=== PATIENT | female | born 1945 ===

== ENCOUNTER 2016-09-21 19:28 | Emergency (ER) | payer MEDICARE, MEDICAID ==
[2016-09-21 19:28] VITALS: BMI 34.3
[2016-09-21 20:11] VITALS: BP 165/79; PULSE 97; RESP 16; TEMP 97.9; O2SAT 99
--- NOTE | 2016-09-21 21:50 | ED PDOC ---
Lower Extremity Pain/Injury Time Seen by Provider: 09/21/16 20:15 Chief Complaint (Nursing): Lower Extremity Problem/Injury Chief Complaint (Provider): Lower Extremity Injury History Per: Patient History/Exam Limitations: no limitations Onset/Duration Of Symptoms: Hrs (earlier today) Current Symptoms Are (Timing): Still Present Additional Complaint(s): 71 year old female presents to ED with complaints of left ankle pain since earlier today. Patient states that she was walking when she felt the sudden onset of pain. (-) pain radiation, numbness, tingling, or fever. PCP: Sudhakar Powers Past Medical History Reviewed: Historical Data, Nursing Documentation, Vital Signs Vital Signs: Last Vital Signs Temp 97.9 F 09/21/16 20:09 Pulse 97 H 09/21/16 20:09 Resp 16 09/21/16 20:09 BP 165/79 H 09/21/16 20:09 Pulse Ox 99 09/21/16 20:09 - Medical History PMH: Anxiety, Arthritis, Asthma, COPD, Depression, Diabetes, Diverticulitis, GERD, HTN, Hypercholesterolemia, Chronic Kidney Disease - Surgical History Surgical History: Cholecystectomy, (x1) - Family History Family History: States: Unknown Family Hx - Home Medications Home Medications: Ambulatory Orders Medication Instructions Recorded Albuterol 0.5% [Albuterol 0.5% 1 puff INH Q6 PRN 03/03/14 Inhal Lena (5 mg/ ml) 20 ml] Alprazolam [Xanax] 1 tab PO DAILY PRN 03/03/14 Bimatoprost [Lumigan 2.5 ml] 1 drop EACHEYE DAILY 03/03/14 Bisoprolol [Bisoprolol] 1 tab PO DAILY 03/03/14 Dexlansoprazole [Dexilant] 1 tab PO DAILY 03/03/14 Dorzolamide 2% [Trusopt] 1 drop EACHEYE BID 03/03/14 Budesonide/Formoterol Fumarate 1 aer IH BID 05/25/14 [Symbicort] Valsartan [Diovan] 40 mg PO DAILY 05/25/14 Albuterol 0.5% [Albuterol 0.5% 3 ml IH Q6H PRN #30 neb 01/11/15 Inhal Lena (2.5 mg/0.5 ml) UD] Albuterol HFA [Ventolin HFA 90 2 puff IH [id number] PRN #1 bottle 01/11/15 mcg/actuation (8 g)] Prednisone 50 mg PO DAILY #4 tab 01/11/15 Tramadol HCl [Ultram] 50 mg PO BID PRN #10 tablet 09/21/16 - Allergies Allergies/Adverse Reactions: Allergies Allergy/AdvReac Type Severity Reaction Status Date / Time clindamycin Allergy SWELLING Verified 09/21/16 20:33 ibuprofen [From Motrin] Allergy SWELLING Verified 09/21/16 20:33 iodine Allergy RASH Verified 09/21/16 20:33 Penicillins Allergy SWELLING Verified 09/21/16 20:33 Review of Systems ROS Statement: Except As Marked, All Systems Reviewed And Found Negative Constitutional: Negative for: Fever Musculoskeletal: Positive for: Leg Pain (Left ankle pain) Physical Exam - Reviewed Nursing Documentation Reviewed: Yes Vital Signs Reviewed: Yes - Physical Exam Appears: Positive for: Non-toxic, No Acute Distress Skin: Positive for: Normal Color, Warm, Dry Pulses-Dorsalis Pedis (L): 2+ Pulses-Dorsalis Pedis (R): 2+ Extremity: Positive for: Tenderness (Minimal tenderness to left medial malleolus , no foot tenderness), Capillary Refill (<2 seconds). Negative for: Calf Tenderness, Deformity, Other (No warmth or erythema to the area) Neurologic/Psych: Positive for: Alert, Oriented. Negative for: Motor/Sensory Deficits - ECG O2 Sat by Pulse Oximetry: 99 (RA) Pulse Ox Interpretation: Normal - Radiology X-Ray: Interpreted by Me (Ankle x-ray) X-Ray Interpretation: Other (mild DJD; no fx) Medical Decision Making Medical Decision Makin Initial impression: ankle pain Initial plan: * XR ANKLE LEFT Scribe Attestation: Documented by Christal Ruiz acting as a scribe for Rico Todd PA-C. MD Scribe Attestation: All medical record entries made by the Scribe were at my direction and personally dictated by me. I have reviewed the chart and agree that the record accurately reflects my personal performance of the history, physical exam, medical decision making, and the department course for this patient. I have also personally directed, reviewed, and agree with the discharge instructions and disposition. Disposition - Clinical Impression Clinical Impression: Ankle pain - Patient ED Disposition Is Patient to be Admitted: No - Disposition Referrals: [facility] [Outside] Bebo Miranda DPM [Staff Provider] - Disposition Time: 21:20 Condition: STABLE Prescriptions: Tramadol HCl [Ultram] 50 mg PO BID PRN #10 tablet PRN Reason: Other Instructions: Arthralgia (ED) Print Language: CROATIAN
--- NOTE | 2016-09-22 10:27 | RAD ---
PROCEDURE: Left Ankle Radiographs. HISTORY: pain COMPARISON: None FINDINGS: BONES: No fracture is seen. No lytic process is identified. Talar dome is normal in outline. There are mild degenerative changes seen in the medial and lateral ankle region. Posterior and plantar calcaneal spurs are noted. There are additional degenerative changes seen in the tarsal bone region. No focal osteochondral defect in the talar dome. JOINTS: No ankle mortise widening. Subtalar joint is unremarkable. SOFT TISSUES: Moderate soft tissue swelling. OTHER FINDINGS: None. IMPRESSION: Nonspecific soft tissue swelling. No acute fracture. Degenerative changes.
== END 2016-09-21 21:40 | disposition home or self-care (01) ==
LOC: H.ER 19:28
DX: M25.572 Pain in left ankle and joints of left foot (principal); E11.22 Type 2 diabetes mellitus with diabetic chronic kidney disease; E78.00 Pure hypercholesterolemia, unspecified; I12.9 Hypertensive chronic kidney disease with stage 1 through stage 4 chronic kidney disease, or unspecified chronic kidney disease

== ENCOUNTER 2017-07-25 11:58 | Emergency (ER) | payer MEDICARE, MEDICAID ==
[2017-07-25 11:58] VITALS: BMI 34.3
[2017-07-25 12:41] VITALS: RESP 18; O2SAT 97
[2017-07-25] MEDS ORDERED: Albuterol-Ipratrop 3 mg / 0.5 (3 ml) UD INH STA (13:28)
--- NOTE | 2017-07-25 13:28 | ED PDOC ---
HPI: SOB/CHF/COPD Time Seen by Provider: 07/25/17 12:57 Chief Complaint (Nursing): Shortness Of Breath Chief Complaint (Provider): asthma, cough History Per: Patient Additional Complaint(s): 22-year-old female with history of asthma presents to emergency department with asthma exacerbation for 2 days associated with dry cough. Patient denies any chest pain. She has been using Ventolin inhaler which has provided minimal relief of symptoms. She denies any recent travel. She is unaware of any fever or chills. Past Medical History Reviewed: Historical Data, Nursing Documentation, Vital Signs Vital Signs: Last Vital Signs Temp 98.0 F 07/25/17 12:39 Pulse 93 H 07/25/17 12:39 Resp 18 07/25/17 14:08 BP 162/85 H 07/25/17 12:39 Pulse Ox 97 07/25/17 16:17 - Medical History PMH: Anxiety, Arthritis, Asthma, COPD, Depression, Diabetes, Diverticulitis, GERD, HTN, Hypercholesterolemia - Surgical History Surgical History: Cholecystectomy, (x1) - Family History Family History: States: No Known Family Hx - Social History Current smoker - smoking cessation education provided: No Alcohol: None Drugs: Denies - Home Medications Home Medications: Ambulatory Orders Medication Instructions Recorded Albuterol 0.5% [Albuterol 0.5% 1 puff INH Q6 PRN 03/03/14 Inhal Lena (5 mg/ ml) 20 ml] Alprazolam [Xanax] 1 tab PO DAILY PRN 03/03/14 Bimatoprost [Lumigan 2.5 ml] 1 drop EACHEYE DAILY 03/03/14 Bisoprolol [Bisoprolol] 1 tab PO DAILY 03/03/14 Dexlansoprazole [Dexilant] 1 tab PO DAILY 03/03/14 Dorzolamide 2% [Trusopt] 1 drop EACHEYE BID 03/03/14 Budesonide/Formoterol Fumarate 1 aer IH BID 05/25/14 [Symbicort] Valsartan [Diovan] 40 mg PO DAILY 05/25/14 Albuterol 0.5% [Albuterol 0.5% 3 ml IH Q6H PRN #30 neb 01/11/15 Inhal Lena (2.5 mg/0.5 ml) UD] Albuterol HFA [Ventolin HFA 90 2 puff IH [id number] PRN #1 bottle 01/11/15 mcg/actuation (8 g)] Prednisone 50 mg PO DAILY #4 tab 01/11/15 Tramadol HCl [Ultram] 50 mg PO BID PRN #10 tablet 09/21/16 Albuterol HFA [Ventolin HFA 90 1 puff IH ASDIR #1 unit 07/25/17 mcg/actuation (8 g)] Azithromycin [Zithromax] 250 mg PO DAILY #6 tab 07/25/17 Benzonatate 200 mg PO TID PRN #20 capsule 07/25/17 predniSONE [Prednisone] 10 mg PO BID #10 tab 07/25/17 - Allergies Allergies/Adverse Reactions: Allergies Allergy/AdvReac Type Severity Reaction Status Date / Time clarithromycin [From Biaxin] Allergy VOMITING Verified 07/25/17 12:39 clindamycin Allergy SWELLING Verified 07/25/17 12:39 ibuprofen [From Motrin] Allergy SWELLING Verified 07/25/17 12:39 iodine Allergy RASH Verified 07/25/17 12:39 Penicillins Allergy SWELLING Verified 07/25/17 12:39 Curb-65 Severity Score - CURB-65 Severity Score Confusion: No Bun >19mg/dl (>7mmol/L): No Respiratory Rate greater than/equal to 30: No Systolic BP <90 or Diastolic BP less than/equal 60mmHg: No Age >64: Yes Curb-65 Score: 1 Percentage 30-day mortality: 2.7% Wells Criteria for PE - Wells Criteria for Pulmonary Embolism Clinical Signs and Symptoms of DVT: No P.E is #1 Diagnosis, or Equally Likely: No Heart Rate >100: No Immobilization at least 3 days;Surgery previous 4 weeks: No Previous, objectively diagnosed PE or DVT: No Hemoptysis: No Malignancy w/treatment within 6 months, or palliative: No Total Score: 0 Review of Systems ROS Statement: Except As Marked, All Systems Reviewed And Found Negative Constitutional: Negative for: Fever, Chills Cardiovascular: Negative for: Chest Pain Respiratory: Positive for: Cough, Shortness of Breath. Negative for: Wheezing Gastrointestinal: Negative for: Nausea, Vomiting Neurological: Negative for: Headache, Dizziness Physical Exam - Reviewed Nursing Documentation Reviewed: Yes Vital Signs Reviewed: Yes - Physical Exam Appears: Positive for: Well, Non-toxic, No Acute Distress Skin: Negative for: Rash Eye Exam: Positive for: Normal appearance ENT: Positive for: Normal ENT Inspection Neck: Positive for: Normal Cardiovascular/Chest: Positive for: Regular Rate, Rhythm Respiratory: Positive for: Decreased Breath Sounds. Negative for: Accessory Muscle Use, Wheezing, Respiratory Distress Extremity: Negative for: Pedal Edema Neurologic/Psych: Positive for: Alert, Oriented - Laboratory Results Result Diagrams: 07/25/17 13:36 07/25/17 13:36 - ECG Interpretation Of ECG: NSR 94 bpm, no acute finding, reviewed by PA and ED attending. O2 Sat by Pulse Oximetry: 97 Pulse Ox Interpretation: Normal - Other Rad cxr X-Ray: Interpreted by Me, Viewed By Me X-Ray Interpretation: no acute finding Nebulizer Treatments/Peak Flow - Duonebs Number of Bronchodilator Doses given?: 1 (duoneb) - Pre/Post Peak Flow Pre Treatment Peak Flow: 200 Post treatment Peak Flow: 250 - Steroid Treatment Steroid: Oral (prednisone 20 mg PO tab) - Clinical Response Clinical Response: Improved Medical Decision Making Medical Decision Makin72 year old with asthma exacerbation and cough Plan: CBC CMP EKG CXR Trop BNP Duoneb x 1 Prednisone 20 mg PO PO tylenol Flu swab Patient is aware of all diagnostic testing results, all questions answered. Patient feels better after meds given. Prescriptions provided for Tessalon Perles, Zithromax, prednisone and Ventolin inhaler. Advised Tylenol as needed for pain, fluids, rest and follow-up with clinic or primary doctor in 2-3 days. Patient aware she can return to ED any time if acutely worse. Disposition - Clinical Impression Clinical Impression: Asthma exacerbation, mild, Bronchitis - Patient ED Disposition Is Patient to be Admitted: No Counseled Patient/Family Regarding: Studies Performed, Diagnosis, Need For Followup, Rx Given - Disposition Referrals: [facility] [Outside] Disposition: Routine/Home Disposition Time: 16:35 Condition: STABLE Additional Instructions: Take prescription medications as directed. Tylenol for pain as needed. Follow up with clinic or primary doctor in 2-3 days. Prescriptions: Albuterol HFA [Ventolin HFA 90 mcg/actuation (8 g)] 1 puff IH ASDIR #1 unit Azithromycin [Zithromax] 250 mg PO DAILY #6 tab Benzonatate 200 mg PO TID PRN #20 capsule PRN Reason: Cough predniSONE [Prednisone] 10 mg PO BID #10 tab Instructions: Asthma (ED), Acute Bronchitis (ED) Forms: [employer] (Moroccan) Results - Lab Results Lab Results: 07/25/17 07/25/17 07/25/17 14:06 13:36 13:36 WBC 8.0 RBC 4.63 Hgb 12.6 Hct 37.8 MCV 81.8 MCH 27.2 MCHC 33.3 RDW 14.8 H Plt Count 221 MPV 9.5 Neut % (Auto) 62.2 Lymph % (Auto) 25.7 [place] % (Auto) 8.2 Eos % (Auto) 3.4 Baso % (Auto) 0.5 Neut # 5.0 Lymph # 2.1 [place] # 0.7 Eos # 0.3 Baso # 0.0 Sodium 142 Potassium 3.9 Chloride 104 Carbon Dioxide 28 Anion Gap 14 BUN 14 Creatinine 1.0 Est GFR ( Amer) > 60 Est GFR (Non-Af Amer) 55 Random Glucose 125 H Calcium 9.7 Total Bilirubin 0.4 AST 22 ALT 41 Alkaline Phosphatase 72 Troponin I < 0.0120 NT-Pro-B Natriuret Pep 109 Total Protein 8.3 H Albumin 4.4 Globulin 3.9 Albumin/Globulin Ratio 1.1 Influenza Typ A,B (EIA) Negative for flu a/b
[2017-07-25] MEDS ORDERED: Albuterol-Ipratrop 3 mg / 0.5 (3 ml) UD ONE (13:49)
[2017-07-25 14:03] LABS: ALB/GLOB RATIO 1.1 (1.0-2.1); ALBUMIN 4.4 g/dL (3.5-5.0); ALT/SGPT 41 U/L (9-52); AST/SGOT 22 U/L (14-36); BLOOD UREA NITROGEN 14 mg/dl (7-17); CALCIUM 9.7 mg/dL (8.4-10.2); GFR AFRICAN-AMERICAN > 60; GFR NON-AFRICAN AMERICAN 55
[2017-07-25 14:12] LABS: BASO % 0.5 % (0.0-2.0); EOS # 0.3 K/uL (0.0-0.7); EOS % 3.4 % (0.0-4.0); HEMOGLOBIN 12.6 g/dL (12.0-16.0); LYMPH # 2.1 K/uL (1.0-4.3); LYMPH % 25.7 % (20.0-40.0); MEAN CELL VOLUME 81.8 fl (81.0-99.0); MEAN CORPUSCULAR HEMOGLOBIN 27.2 pg (27.0-31.0); MEAN CORPUSCULAR HGB CONC 33.3 g/dL (33.0-37.0); MEAN PLATELET VOLUME 9.5 fl (7.2-11.7); MONO # 0.7 K/uL (0.0-0.8); MONO % 8.2 % (0.0-10.0); NEUT % 62.2 % (50.0-75.0); NRBC % 0.1 % (0.0-0.0); RBC 4.63 Mil/uL (3.80-5.20); RED CELL DISTRIBUTION WIDTH 14.8 % (11.5-14.5)
[2017-07-25 14:14] LABS: B-TYPE NATRIURETIC PEPTIDE 109 pg/ml (0-900)
--- NOTE | 2017-07-25 14:37 | RAD ---
HISTORY: cough, SOB COMPARISON: 01/17/2017 FINDINGS: LUNGS: No active pulmonary disease. PLEURA: No significant pleural effusion identified, no pneumothorax apparent. CARDIOVASCULAR: Normal. OSSEOUS STRUCTURES: Apparent thoracic dextroscoliosis likely artifactual due to oblique positioning. VISUALIZED UPPER ABDOMEN: Normal. OTHER FINDINGS: None. IMPRESSION: No active disease.
[2017-07-25 16:53] VITALS: BP 138/78; PULSE 78; TEMP 98.8
--- NOTE | 2017-07-26 18:12 | CARD ---
APPROVED REPORT EKG Measurement Heart [id number] <Conclusion> Normal sinus rhythm Minimal voltage criteria for LVH, may be normal variant Nonspecific ST and T wave abnormality Abnormal ECG
== END 2017-07-25 16:53 | disposition home or self-care (01) ==
LOC: H.ER 11:58
DX: J45.901 Unspecified asthma with (acute) exacerbation (principal); E11.9 Type 2 diabetes mellitus without complications; E78.00 Pure hypercholesterolemia, unspecified; F32.9 Major depressive disorder, single episode, unspecified; F41.9 Anxiety disorder, unspecified; I10 Essential (primary) hypertension; K21.9 Gastro-esophageal reflux disease without esophagitis; Z88.0 Allergy status to penicillin; Z88.6 Allergy status to analgesic agent

== ENCOUNTER 2018-01-15 11:32 | Emergency (ER) | payer MEDICARE, MEDICAID ==
[2018-01-15 11:40] VITALS: BMI 35.6
--- NOTE | 2018-01-15 12:22 | ED PDOC ---
HPI: Back Time Seen by Provider: 01/15/18 11:49 Chief Complaint (Nursing): Back Pain History Per: Patient History/Exam Limitations: no limitations Additional Complaint(s): 72 yo F w/ PMH of HTN, asthma, DM, PUD, h/o R renal cancer, s/p R nephrectomy - 2007, cholecystectomy, complains of 3 day h/o intermitttent throbbing lower abdominal pain associated with nausea with no exacerbating or alleviating factors. Patient adds that she has had 3 month h/o intermittent atraumatic R flank pain, which she was already evaluated by her pmd for and was Rx muscle relaxer with no improvement. Otherwise: (+) dysuria, (-) vomiting, (-) diarrhea , (-) fever, (-) melena, (-) hematochezia, (-) chest pain, (-) SOB. 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 Past Medical History Vital Signs: Last Vital Signs Temp 98.1 F 01/15/18 11:41 Pulse 96 H 01/15/18 11:41 Resp 17 01/15/18 11:41 BP 171/84 H 01/15/18 11:41 Pulse Ox 97 01/15/18 11:41 - Medical History PMH: Anxiety, Arthritis, Asthma, COPD, Depression, Diabetes, Diverticulitis, GERD, HTN, Hypercholesterolemia, Chronic Kidney Disease - Surgical History Surgical History: Cholecystectomy, (x1) - Family History Family History: States: Unknown Family Hx - Home Medications Home Medications: Ambulatory Orders Medication Instructions Recorded Albuterol 0.5% [Albuterol 0.5% 1 puff INH Q6 PRN 03/03/14 Inhal Lena (5 mg/ ml) 20 ml] Alprazolam [Xanax] 1 tab PO DAILY PRN 03/03/14 Bimatoprost [Lumigan 2.5 ml] 1 drop EACHEYE DAILY 03/03/14 Bisoprolol [Bisoprolol] 1 tab PO DAILY 03/03/14 Dexlansoprazole [Dexilant] 1 tab PO DAILY 03/03/14 Dorzolamide 2% [Trusopt] 1 drop EACHEYE BID 03/03/14 Budesonide/Formoterol Fumarate 1 aer IH BID 05/25/14 [Symbicort] Valsartan [Diovan] 40 mg PO DAILY 05/25/14 Albuterol 0.5% [Albuterol 0.5% 3 ml IH Q6H PRN #30 neb 01/11/15 Inhal Lena (2.5 mg/0.5 ml) UD] Albuterol HFA [Ventolin HFA 90 2 puff IH [id number] PRN #1 bottle 01/11/15 mcg/actuation (8 g)] Prednisone 50 mg PO DAILY #4 tab 01/11/15 Tramadol HCl [Ultram] 50 mg PO BID PRN #10 tablet 09/21/16 Albuterol HFA [Ventolin HFA 90 1 puff IH ASDIR #1 unit 07/25/17 mcg/actuation (8 g)] Azithromycin [Zithromax] 250 mg PO DAILY #6 tab 07/25/17 Benzonatate 200 mg PO TID PRN #20 capsule 07/25/17 predniSONE [Prednisone] 10 mg PO BID #10 tab 07/25/17 Sulfamethoxazole/Trimethoprim 1 tab PO BID #14 tab 01/15/18 [Bactrim DS 800 mg-160 mg] - Allergies Allergies/Adverse Reactions: Allergies Allergy/AdvReac Type Severity Reaction Status Date / Time clarithromycin [From Biaxin] Allergy VOMITING Verified 07/25/17 12:39 clindamycin Allergy SWELLING Verified 07/25/17 12:39 ibuprofen [From Motrin] Allergy SWELLING Verified 07/25/17 12:39 iodine Allergy RASH Verified 07/25/17 12:39 Penicillins Allergy SWELLING Verified 07/25/17 12:39 Review of Systems Constitutional: Negative for: Fever, Malaise Cardiovascular: Negative for: Chest Pain, Palpitations Respiratory: Negative for: Cough, Shortness of Breath Gastrointestinal: Positive for: Nausea, Abdominal Pain. Negative for: Vomiting , Diarrhea Genitourinary Female: Positive for: Dysuria. Negative for: Frequency, Hematuria Musculoskeletal: Negative for: Neck Pain, Back Pain Skin: Negative for: Rash, Lesions Physical Exam - Physical Exam Appears: Positive for: Well, Non-toxic, No Acute Distress (ambulating in the ER , in no painful distress) Head Exam: Positive for: ATRAUMATIC, NORMAL INSPECTION, NORMOCEPHALIC Skin: Positive for: Normal Color, Warm, Dry Eye Exam: Positive for: EOMI, Normal appearance, PERRL ENT: Positive for: Normal ENT Inspection, Other (mucus membranes moist) Neck: Positive for: Normal, Painless ROM, Supple Cardiovascular/Chest: Positive for: Regular Rate, Rhythm. Negative for: Murmur Respiratory: Positive for: Normal Breath Sounds. Negative for: Rales, Rhonchi, Wheezing Gastrointestinal/Abdominal: Positive for: Normal Exam, Soft. Negative for: Tenderness, Organomegaly, Mass, Guarding, Rebound Back: Positive for: Normal Inspection. Negative for: L CVA Tenderness, R CVA Tenderness, Vertebral Tenderness Extremity: Positive for: Normal ROM. 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 Negative for : Motor/Sensory Deficits - Laboratory Results Result Diagrams: 01/15/18 12:40 01/15/18 13:00 - ECG O2 Sat by Pulse Oximetry: 97 Medical Decision Making Medical Decision Making: Plan : - IV - Labs - Udip - CT A/P w/ PO & IV contrast - pepcid IV / zofran IV Udip (+) trace leuks, (+) proteins. UA and culture sent to lab. Labs reviewed : wnl. CT A/P : FINDINGS: LOWER THORAX: Unremarkable. LIVER: Unremarkable. No gross lesion or ductal dilatation. GALLBLADDER AND BILE DUCTS: Unremarkable. PANCREAS: Unremarkable. No gross lesion or ductal dilatation. SPLEEN: Unremarkable. ADRENALS: The minimal nodular prominence to the left adrenal limbs is stable finding. KIDNEYS AND URETERS: The right kidney is not visualized consistent with its prior surgical removal surgical clips here noted. This no soft tissue findings to suggest disease recurrence here. The large exophytic left lower renal pole cyst is much smaller in size on the current study previously this measured up to 13 cm now this is approximately 7 cm. No hydronephrosis. No gross suspicious mass on this noncontrast enhanced study. No left renal or ureteral calculi. VASCULATURE: Unremarkable. No aortic aneurysm. BOWEL: Unremarkable. No obstruction. No gross mural thickening. No gross diverticulitis suggested APPENDIX: Normal appendix. PERITONEUM: Unremarkable. No free fluid. No free air. LYMPH NODES: Unremarkable. No enlarged lymph nodes. BLADDER: Unremarkable. REPRODUCTIVE: There are probably interval minimal benign-appearing follicular cystic changes in this left ovary in this 72-year-old female. No suspicious interval pathology noted BONES: No acute fracture. Facet hypertrophic changes and diffuse lumbar spondylosis noted findings are critically noted at the L4-5. These bilateral facet changes slightly encroach on each posterior lateral recess. OTHER FINDINGS: A very small umbilical fat only containing hernia noted no bowel containing hernias noted IMPRESSION: Status post right nephrectomy without disease recurrence suggested in the nephrectomy bed. The prior left lower renal pole exophytic renal cyst smaller on the current study prior study no interval renal ureteral or bladder calculi seen. No hydronephrosis Following the left ureter to the bladder is somewhat problematic. Some of the findings seen near its course may relate to tiny ovarian follicular cystic changes in this postmenopausal female. No proximal left ureteral dilatation. No distal ureteral obstructing source appreciated. Osseous hypertrophic changes as above. At L4-5 the facets mild moderately iencroach on the posterior lateral recesses. No high-grade central stenosis noted. No fractures appreciated. On re-evaluation, patient denies any abdominal pain or flank pain at this time. On exam, patient remains AAOx3, in no acute distress. Abdomen soft, non-tender, no CVA tenderness. BP 156/70 P 90. Diagnostic results d/w the patient in great detail. Diagnosis of uti d/w the patient. Based on history, exam and diagnostic results, plan will be for outpatient follow up. Patient instructed to follow-up with pmd in 1-2 days without fail. Advised to take medication as prescribed. Return to the emergency room at any time for any new or worsening symptoms. Patient states she fully agrees with and understands discharge instructions. States that she agrees with the plan and disposition. Verbalized and repeated discharge instructions and plan. I have given the patient opportunity to ask any additional questions. Disposition - Clinical Impression Clinical Impression: Abdominal pain, UTI (urinary tract infection) - Patient ED Disposition Is Patient to be Admitted: No Counseled Patient/Family Regarding: Studies Performed, Diagnosis, Need For Followup, Rx Given - Disposition Disposition: Routine/Home Disposition Time: 17:30 Condition: STABLE Additional Instructions: Thank you for letting us take care of you today. You were treated for UTI. The emergency medical care you received today was directed at your acute symptoms. If you were prescribed any medication, please fill it and take as directed. It may take several days for your symptoms to resolve. Return to the Emergency Department if your symptoms worsen, do not improve, or if you have any other problems. Please contact your doctor in 2 days for re-evaluation and follow up. Bring any paperwork you were given at discharge with you along with any medications you are taking to your follow up visit. Our treatment cannot replace ongoing medical care by a primary care provider (PCP) outside of the emergency department. Thank you for allowing the [facility] team to be part of your care today. If you had a urine culture test done : We will call you regarding any positive results Prescriptions: Sulfamethoxazole/Trimethoprim [Bactrim DS 800 mg-160 mg] 1 tab PO BID #14 tab Instructions: Urinary Tract Infections in Adults, Acute Abdomen (Belly Pain) Forms: [employer] (Jordanian) Print Language: ENGLISH
[2018-01-15 12:47] LABS: BASO # 0.1 K/uL (0.0-0.2); BASO % 0.8 % (0.0-2.0); EOS # 0.2 K/uL (0.0-0.7); EOS % 1.5 % (0.0-4.0); HEMOGLOBIN 12.7 g/dL (12.0-16.0); LYMPH # 2.3 K/uL (1.0-4.3); LYMPH % 22.8 % (20.0-40.0); MEAN CELL VOLUME 81.7 fl (81.0-99.0); MEAN CORPUSCULAR HEMOGLOBIN 27.7 pg (27.0-31.0); MEAN CORPUSCULAR HGB CONC 33.9 g/dL (33.0-37.0); MEAN PLATELET VOLUME 9.1 fl (7.2-11.7); MONO # 0.6 K/uL (0.0-0.8); MONO % 5.7 % (0.0-10.0); NEUT # 6.8 K/uL (1.8-7.0); NEUT % 69.2 % (50.0-75.0); NRBC % 0.1 % (0.0-0.0); RBC 4.58 Mil/uL (3.80-5.20); RED CELL DISTRIBUTION WIDTH 15.1 % (11.5-14.5); WHITE BLOOD COUNT 9.9 K/uL (4.8-10.8)
[2018-01-15 12:52] LABS: SQUAMOUS EPITHIAL 2 /hpf (0-5); URINE BILIRUBIN NEGATIVE (NEGATIVE); URINE BLOOD NEGATIVE (NEGATIVE); URINE CLARITY SLIGHTY-CLOUDY (Clear); URINE COLOR YELLOW (YELLOW); URINE GLUCOSE (UA) NEG (Normal); URINE LEUKOCYTE ESTERASE SMALL Leu/uL (Negative); URINE PROTEIN 30 mg/dL (NEGATIVE); URINE UROBILINOGEN 0.2-1.0 mg/dL (0.2-1.0)
[2018-01-15 13:26] LABS: ALB/GLOB RATIO 1.1 (1.0-2.1); ALBUMIN 4.5 g/dL (3.5-5.0); CALCIUM 9.9 mg/dL (8.4-10.2)
[2018-01-15] MEDS ORDERED: Iohexol 240 (50 ml) PO ONE (13:42)
[2018-01-15] MEDS ORDERED: Iohexol 240 (50 ml) ONE (14:02)
--- NOTE | 2018-01-15 16:47 | CT ---
Date of service: 01/15/2018 PROCEDURE: CT Abdomen and Pelvis with contrast HISTORY: lower abd pain, h/o R renal ca, R nephrectomy COMPARISON: CT abdomen and pelvis 10/23/2012 TECHNIQUE: Contrast dose: No IV contrast administered. Oral contrast was administered. Radiation dose: Total exam DLP = 977 mGy-cm. This CT exam was performed using one or more of the following dose reduction techniques: Automated exposure control, adjustment of the mA and/or kV according to patient size, and/or use of iterative reconstruction technique. FINDINGS: LOWER THORAX: Unremarkable. LIVER: Unremarkable. No gross lesion or ductal dilatation. GALLBLADDER AND BILE DUCTS: Unremarkable. PANCREAS: Unremarkable. No gross lesion or ductal dilatation. SPLEEN: Unremarkable. ADRENALS: The minimal nodular prominence to the left adrenal limbs is stable finding. KIDNEYS AND URETERS: The right kidney is not visualized consistent with its prior surgical removal surgical clips here noted. This no soft tissue findings to suggest disease recurrence here. The large exophytic left lower renal pole cyst is much smaller in size on the current study previously this measured up to 13 cm now this is approximately 7 cm. No hydronephrosis. No gross suspicious mass on this noncontrast enhanced study. No left renal or ureteral calculi. VASCULATURE: Unremarkable. No aortic aneurysm. BOWEL: Unremarkable. No obstruction. No gross mural thickening. No gross diverticulitis suggested APPENDIX: Normal appendix. PERITONEUM: Unremarkable. No free fluid. No free air. LYMPH NODES: Unremarkable. No enlarged lymph nodes. BLADDER: Unremarkable. REPRODUCTIVE: There are probably interval minimal benign-appearing follicular cystic changes in this left ovary in this 72-year-old female. No suspicious interval pathology noted BONES: No acute fracture. Facet hypertrophic changes and diffuse lumbar spondylosis noted findings are critically noted at the L4-5. These bilateral facet changes slightly encroach on each posterior lateral recess. OTHER FINDINGS: A very small umbilical fat only containing hernia noted no bowel containing hernias noted IMPRESSION: Status post right nephrectomy without disease recurrence suggested in the nephrectomy bed. The prior left lower renal pole exophytic renal cyst smaller on the current study prior study no interval renal ureteral or bladder calculi seen. No hydronephrosis Following the left ureter to the bladder is somewhat problematic. Some of the findings seen near its course may relate to tiny ovarian follicular cystic changes in this postmenopausal female. No proximal left ureteral dilatation. No distal ureteral obstructing source appreciated. Osseous hypertrophic changes as above. At L4-5 the facets mild moderately iencroach on the posterior lateral recesses. No high-grade central stenosis noted. No fractures appreciated
[2018-01-15 18:15] VITALS: BP 156/70; PULSE 90; RESP 18; TEMP 98
[2018-01-15 18:22] VITALS: O2SAT 97
== END 2018-01-15 18:15 | disposition home or self-care (01) ==
LOC: H.ER 11:32
DX: R10.9 Unspecified abdominal pain (principal); N39.0 Urinary tract infection, site not specified; Z90.49 Acquired absence of other specified parts of digestive tract; Z88.6 Allergy status to analgesic agent; Z85.528 Personal history of other malignant neoplasm of kidney; N18.9 Chronic kidney disease, unspecified; I12.9 Hypertensive chronic kidney disease with stage 1 through stage 4 chronic kidney disease, or unspecified chronic kidney disease; J44.9 Chronic obstructive pulmonary disease, unspecified; Z88.0 Allergy status to penicillin; Z90.5 Acquired absence of kidney; Z86.59 Personal history of other mental and behavioral disorders; E11.22 Type 2 diabetes mellitus with diabetic chronic kidney disease; E78.00 Pure hypercholesterolemia, unspecified
CPT/HCPCS: 74176; 80053; 81003; 83690; 85025; 87086; 96374; 96375; 99283; J2405; Q9966

== ENCOUNTER 2018-08-15 14:47 | Emergency (ER) | payer MEDICARE, MEDICAID ==
[2018-08-15 14:47] VITALS: BMI 35.6
[2018-08-15 15:16] VITALS: TEMP 98.4
[2018-08-15] MEDS ORDERED: Albuterol-Ipratrop 3 mg / 0.5 (3 ml) UD IH STA (17:29)
--- NOTE | 2018-08-15 17:53 | ED PDOC ---
HPI: SOB/CHF/COPD Time Seen by Provider: 08/15/18 17:25 Chief Complaint (Nursing): Shortness Of Breath Chief Complaint (Provider): Cough, shortness of breath History Per: Patient History/Exam Limitations: no limitations Onset/Duration Of Symptoms: Days (x4) Current Symptoms Are (Timing): Still Present Additional Complaint(s): 73 year old female, with a past medical history of asthma, presents to the ED with productive cough, chest tightness, and shortness of breath for 4 days. Patient was seen by her PMD and has been using nebulizer treatment and Medrol dose pack with no improvement. Denies fever. PMD: López Ruano Past Medical History Reviewed: Historical Data, Nursing Documentation, Vital Signs Vital Signs: Last Vital Signs Temp 98.4 F 08/15/18 15:13 Pulse 96 H 08/15/18 15:13 Resp 19 08/15/18 15:13 BP 132/96 H 08/15/18 15:13 Pulse Ox 100 08/15/18 15:13 - Medical History PMH: Anxiety, Arthritis, Asthma, COPD, Depression, Diabetes, Diverticulitis, GERD, HTN, Hypercholesterolemia, Chronic Kidney Disease - Surgical History Surgical History: Cholecystectomy, (x1) - Family History Family History: States: Unknown Family Hx - Home Medications Home Medications: Ambulatory Orders Medication Instructions Recorded Albuterol 0.5% [Albuterol 0.5% 1 puff INH Q6 PRN 03/03/14 Inhal Lena (5 mg/ ml) 20 ml] Alprazolam [Xanax] 1 tab PO DAILY PRN 03/03/14 Bimatoprost [Lumigan 2.5 ml] 1 drop EACHEYE DAILY 03/03/14 Bisoprolol 1 tab PO DAILY 03/03/14 Dexlansoprazole [Dexilant] 1 tab PO DAILY 03/03/14 Dorzolamide 2% [Trusopt] 1 drop EACHEYE BID 03/03/14 Budesonide/Formoterol Fumarate 1 aer IH BID 05/25/14 [Symbicort] Valsartan [Diovan] 40 mg PO DAILY 05/25/14 Albuterol 0.5% [Albuterol 0.5% 3 ml IH Q6H PRN #30 neb 01/11/15 Inhal Lena (2.5 mg/0.5 ml) UD] Albuterol HFA [Ventolin HFA 90 2 puff IH [id number] PRN #1 bottle 01/11/15 mcg/actuation (8 g)] Prednisone 50 mg PO DAILY #4 tab 01/11/15 Tramadol HCl [Ultram] 50 mg PO BID PRN #10 tablet 09/21/16 Albuterol HFA [Ventolin HFA 90 1 puff IH ASDIR #1 unit 07/25/17 mcg/actuation (8 g)] Azithromycin [Zithromax] 250 mg PO DAILY #6 tab 07/25/17 Benzonatate 200 mg PO TID PRN #20 capsule 07/25/17 predniSONE [Prednisone] 10 mg PO BID #10 tab 07/25/17 Sulfamethoxazole/Trimethoprim 1 tab PO BID #14 tab 01/15/18 [Bactrim DS 800 mg-160 mg] Albuterol 0.083% [Albuterol 3 ml IH Q8 #1 neb 08/15/18 Sulfate 3 Ml] Prednisone 50 mg PO DAILY #5 tab 08/15/18 - Allergies Allergies/Adverse Reactions: Allergies Allergy/AdvReac Type Severity Reaction Status Date / Time clarithromycin [From Biaxin] Allergy VOMITING Verified 08/15/18 15:12 clindamycin Allergy SWELLING Verified 08/15/18 15:12 ibuprofen [From Motrin] Allergy SWELLING Verified 08/15/18 15:12 iodine Allergy RASH Verified 08/15/18 15:12 Penicillins Allergy SWELLING Verified 08/15/18 15:12 Review of Systems ROS Statement: Except As Marked, All Systems Reviewed And Found Negative Constitutional: Negative for: Fever Cardiovascular: Positive for: Chest Pain (tightness) Respiratory: Positive for: Cough (productive), Shortness of Breath Physical Exam - Reviewed Nursing Documentation Reviewed: Yes Vital Signs Reviewed: Yes - Physical Exam Appears: Positive for: Non-toxic, No Acute Distress Head Exam: Positive for: ATRAUMATIC, NORMOCEPHALIC Skin: Positive for: Normal Color, Warm, Dry Eye Exam: Positive for: Normal appearance Neck: Positive for: Normal, Painless ROM Cardiovascular/Chest: Positive for: Regular Rate, Rhythm Respiratory: Positive for: Rhonchi (bilaterally), Wheezing (Mild expiratory wheezing bilaterally). Negative for: Respiratory Distress Gastrointestinal/Abdominal: Positive for: Normal Exam, Soft. Negative for: Tenderness Extremity: Positive for: Normal ROM Neurologic/Psych: Positive for: Alert, Oriented. Negative for: Motor/Sensory Deficits - ECG O2 Sat by Pulse Oximetry: 100 (RA) Pulse Ox Interpretation: Normal Medical Decision Making Medical Decision Making: Initial Plan: --ECG --Chest X-ray --Albuterol 3mL INH --Peak flow --Influenza A B stat Scribe Attestation: Documented by Kian Gonzalez acting as a scribe for Robin Clements MD. Provider Scribe Attestation: All medical record entries made by the Scribe were at my direction and personally dictated by me. I have reviewed the chart and agree that the record accurately reflects my personal performance of the history, physical exam, medical decision making, and the department course for this patient. I have also personally directed, reviewed, and agree with the discharge instructions and disposition. Disposition - Clinical Impression Clinical Impression: Bronchitis, Asthma exacerbation, mild - Patient ED Disposition Is Patient to be Admitted: No Counseled Patient/Family Regarding: Studies Performed, Diagnosis, Need For Followup, Rx Given - Disposition Referrals: López Haney MD [Family Provider] - Disposition: Routine/Home Disposition Time: 18:50 Condition: FAIR Prescriptions: Albuterol 0.083% [Albuterol Sulfate 3 Ml] 3 ml IH Q8 #1 neb Prednisone 50 mg PO DAILY #5 tab Instructions: Acute Bronchitis, Asthma, Adult (DC) Forms: [employer] (Bulgarian) Print Language: TURKMEN
--- NOTE | 2018-08-15 18:41 | RAD ---
Date of service: 08/15/2018 HISTORY: cough COMPARISON: 07/25/2017 TECHNIQUE: Chest PA and lateral FINDINGS: LUNGS: No active pulmonary disease. PLEURA: No significant pleural effusion identified. No pneumothorax apparent. CARDIOVASCULAR: No aortic atherosclerotic calcification present. Normal cardiac size. No pulmonary vascular congestion. OSSEOUS STRUCTURES: No significant abnormalities. VISUALIZED UPPER ABDOMEN: Normal. OTHER FINDINGS: None. IMPRESSION: No active disease.
[2018-08-15 19:43] VITALS: RESP 20
[2018-08-15 19:48] VITALS: BP 130/57; PULSE 80; O2SAT 98
--- NOTE | 2018-08-16 21:51 | CARD ---
APPROVED REPORT Date of service: 08/15/2018 EKG Measurement Heart [id number] <Conclusion> Normal sinus rhythm Nonspecific ST and T wave abnormality Abnormal ECG
== END 2018-08-15 18:58 | disposition home or self-care (01) ==
LOC: H.ER 14:47
DX: J45.901 Unspecified asthma with (acute) exacerbation (principal); J40 Bronchitis, not specified as acute or chronic; K21.9 Gastro-esophageal reflux disease without esophagitis; E78.00 Pure hypercholesterolemia, unspecified; I12.9 Hypertensive chronic kidney disease with stage 1 through stage 4 chronic kidney disease, or unspecified chronic kidney disease; Z88.0 Allergy status to penicillin; Z79.899 Other long term (current) drug therapy; Z88.6 Allergy status to analgesic agent

== ENCOUNTER 2018-10-13 12:00 | Emergency (ER) | payer MEDICARE, MEDICAID ==
[2018-10-13 12:00] VITALS: BMI 35.6
[2018-10-13 12:25] VITALS: TEMP 98; O2SAT 97
--- NOTE | 2018-10-13 14:49 | CT ---
Date of service: 10/13/2018 PROCEDURE: CT HEAD WITHOUT CONTRAST. HISTORY: Headache COMPARISON: None available. TECHNIQUE: Axial computed tomography images were obtained through the head/brain without intravenous contrast. Radiation dose: Total exam DLP = 863.81 mGy-cm. This CT exam was performed using one or more of the following dose reduction techniques: Automated exposure control, adjustment of the mA and/or kV according to patient size, and/or use of iterative reconstruction technique. FINDINGS: HEMORRHAGE: No intracranial hemorrhage. BRAIN: Carr-white matter differentiation is preserved. There is no mass, mass effect or abnormal extra-axial fluid collection. There is no territorial infarction. The midline sagittal structures are normal. VENTRICLES: The ventricles are normal in size, shape and configuration. CALVARIUM: There is no calvarial fracture or extracranial soft tissue swelling. There is hyperostosis frontalis interna. PARANASAL SINUSES: Predominantly clear. MASTOID AIR CELLS: Predominantly clear. OTHER FINDINGS: None. IMPRESSION: No acute intracranial abnormality.
--- NOTE | 2018-10-13 15:19 | ED PDOC ---
HPI: Headache Time Seen by Provider: 10/13/18 13:12 Chief Complaint (Nursing): Headache Chief Complaint (Provider): FARRIS History Per: Patient History/Exam Limitations: no limitations Additional Complaint(s): Pt reports mid-forehead FARRIS X 6 days, evaluated by PMD and given Rx Zithromax for sinusitis, no relief. No pain medication taken at home. Denies fever, visual changes, nasal discharge, nausea, vomiting, neck stiffness. Past Medical History Reviewed: Nursing Documentation, Vital Signs Vital Signs: Last Vital Signs Temp 98.0 F 10/13/18 12:22 Pulse 97 H 10/13/18 12:22 Resp 16 10/13/18 12:22 BP 170/76 H 10/13/18 12:22 Pulse Ox 97 10/13/18 12:22 - Medical History PMH: Anxiety, Arthritis, Asthma, COPD, Depression, Diabetes, Diverticulitis, GERD, HTN, Hypercholesterolemia, Chronic Kidney Disease - Surgical History Surgical History: Cholecystectomy, (x1) - Family History Family History: States: Unknown Family Hx - Social History Current smoker - smoking cessation education provided: No Alcohol: None - Home Medications Home Medications: Ambulatory Orders Medication Instructions Recorded Albuterol 0.5% [Albuterol 0.5% 1 puff INH Q6 PRN 03/03/14 Inhal Lena (5 mg/ ml) 20 ml] Alprazolam [Xanax] 1 tab PO DAILY PRN 03/03/14 Bimatoprost [Lumigan 2.5 ml] 1 drop EACHEYE DAILY 03/03/14 Bisoprolol 1 tab PO DAILY 03/03/14 Dexlansoprazole [Dexilant] 1 tab PO DAILY 03/03/14 Dorzolamide 2% [Trusopt] 1 drop EACHEYE BID 03/03/14 Budesonide/Formoterol Fumarate 1 aer IH BID 05/25/14 [Symbicort] Valsartan [Diovan] 40 mg PO DAILY 05/25/14 Albuterol 0.5% [Albuterol 0.5% 3 ml IH Q6H PRN #30 neb 01/11/15 Inhal Lena (2.5 mg/0.5 ml) UD] Albuterol HFA [Ventolin HFA 90 2 puff IH [id number] PRN #1 bottle 01/11/15 mcg/actuation (8 g)] Prednisone 50 mg PO DAILY #4 tab 01/11/15 Tramadol HCl [Ultram] 50 mg PO BID PRN #10 tablet 09/21/16 Albuterol HFA [Ventolin HFA 90 1 puff IH ASDIR #1 unit 07/25/17 mcg/actuation (8 g)] Azithromycin [Zithromax] 250 mg PO DAILY #6 tab 07/25/17 Benzonatate 200 mg PO TID PRN #20 capsule 07/25/17 predniSONE [Prednisone] 10 mg PO BID #10 tab 07/25/17 Sulfamethoxazole/Trimethoprim 1 tab PO BID #14 tab 01/15/18 [Bactrim DS 800 mg-160 mg] Albuterol 0.083% [Albuterol 3 ml IH Q8 #1 neb 08/15/18 Sulfate 3 Ml] Prednisone 50 mg PO DAILY #5 tab 08/15/18 traMADol [Ultram] 50 mg PO BID PRN #10 tab 10/13/18 - Allergies Allergies/Adverse Reactions: Allergies Allergy/AdvReac Type Severity Reaction Status Date / Time clarithromycin [From Biaxin] Allergy VOMITING Verified 10/13/18 12:22 clindamycin Allergy SWELLING Verified 10/13/18 12:22 ibuprofen [From Motrin] Allergy SWELLING Verified 10/13/18 12:22 iodine Allergy RASH Verified 10/13/18 12:22 Penicillins Allergy SWELLING Verified 10/13/18 12:22 Review of Systems Constitutional: Negative for: Fever, Chills Eyes: Negative for: Pain, Vision Change ENT: Negative for: Ear Pain, Nose Discharge, Nose Congestion Cardiovascular: Negative for: Chest Pain Respiratory: Negative for: Cough, Shortness of Breath Gastrointestinal: Negative for: Nausea, Vomiting, Abdominal Pain, Diarrhea Musculoskeletal: Negative for: Neck Pain Skin: Negative for: Rash, Lesions Neurological: Positive for: Headache. Negative for: Weakness, Numbness, Incoordination, Change in Speech, Confusion, Seizures, Altered Mental Status, Dizziness Physical Exam - Reviewed Nursing Documentation Reviewed: Yes Vital Signs Reviewed: Yes - Physical Exam Appears: Positive for: Well, No Acute Distress Head Exam: Positive for: ATRAUMATIC, NORMAL INSPECTION Skin: Positive for: Normal Color, Warm, Dry Eye Exam: Positive for: Normal appearance, EOMI, PERRL ENT: Positive for: Other (No sinus tenderness). Negative for: Sinus Pain/D rainage, Nasal Congestion Neck: Positive for: Normal, Painless ROM, Supple Cardiovascular/Chest: Positive for: Regular Rate, Rhythm Respiratory: Positive for: Normal Breath Sounds Extremity: Positive for: Normal ROM Neurological/Psych: Positive for: Awake, Alert, Oriented, drum filler II-XII. Negative for: Motor/Sensory Deficits, Facial Droop - ECG O2 Sat by Pulse Oximetry: 97 Medical Decision Making Medical Decision Makin yo female with headache. - CT head - Tylenol Pt refused Tylenol, Tramadol ordered. Accession No. : [id number] Patient Name / ID : LUAN CABRERA / [id number] Exam Date : 10/13/2018 14:31:31 ( Approved ) Study Comment : Sex / Age : F / 73Y Creator : Verónica Huddleston MD Dictator : Verónica Huddleston MD Physician Assistant Psychiatry : Medical Screener : Verónica Huddleston MD Approver2 : Report Date : 10/13/2018 14:45:48 My Comment : Date of service: 10/13/2018 PROCEDURE: CT HEAD WITHOUT CONTRAST. HISTORY: Headache COMPARISON: None available. TECHNIQUE: Axial computed tomography images were obtained through the head/brain without intravenous contrast. Radiation dose: Total exam DLP = 863.81 mGy-cm. This CT exam was performed using one or more of the following dose reduction techniques: Automated exposure control, adjustment of the mA and/or kV according to patient size, and/or use of iterative reconstruction technique. FINDINGS: HEMORRHAGE: No intracranial hemorrhage. BRAIN: Carr-white matter differentiation is preserved. There is no mass, mass effect or abnormal extra-axial fluid collection. There is no territorial infarction. The midline sagittal structures are normal. VENTRICLES: The ventricles are normal in size, shape and configuration. CALVARIUM: There is no calvarial fracture or extracranial soft tissue swelling. There is hyperostosis frontalis interna. PARANASAL SINUSES: Predominantly clear. MASTOID AIR CELLS: Predominantly clear. OTHER FINDINGS: None. IMPRESSION: No acute intracranial abnormality. Disposition - Clinical Impression Clinical Impression: Headache - Patient ED Disposition Is Patient to be Admitted: No - Disposition Referrals: López Haney MD [Family Provider] - Disposition: Routine/Home Disposition Time: 15:21 Condition: IMPROVED Prescriptions: traMADol [Ultram] 50 mg PO BID PRN #10 tab PRN Reason: Pain, Severe (8-10) Instructions: Headache, Adult Forms: [employer] (Serbian) Print Language: SLOVENIAN
[2018-10-13 15:43] VITALS: BP 145/78; PULSE 95; RESP 18
== END 2018-10-13 15:41 | disposition home or self-care (01) ==
LOC: H.ER 12:00
DX: R51 Headache (principal)